=== PATIENT | female | born 1975 | race Caucasian/White ===

== ENCOUNTER 2018-03-04 18:36 | Outpatient (REF) | payer BC, SELFPAY ==
[2018-03-06 14:35] LABS: HCV RNA Detection Quantitative Undetected IU/mL (UNDECT)
== END 2018-03-04 18:56 ==
LOC: NCHCN 18:36
PROVIDERS: PCP Internal Medicine; Visit Provider Family Medicine
DX: B19.20 Unspecified viral hepatitis C without hepatic coma (principal)
CPT/HCPCS: 87522

== ENCOUNTER 2018-12-11 15:24 | Emergency (ER) | payer BC, SELFPAY ==
[2018-12-11 15:26] VITALS: BP 129/77; PULSE 86; RESP 14; TEMP 36.9; O2SAT 97
--- NOTE | 2018-12-11 15:43 | DI.RAD_ITS ---
SYMPTOM/DIAGNOSIS: COUGH CHEST X-RAY: PA and lateral. No priors Heart size and pulmonary vasculature are within normal limits. There is linear scarring seen in the anterior aspect of the lung on the lateral view. The lungs show no evidence of pneumonia, congestive heart failure or pneumothorax. The bones appear intact. IMPRESSION: No acute pulmonary process.
--- NOTE | 2018-12-11 15:44 | ED.GENADUL_ITS ---
Discharge Plan Disposition Patient Disposition: HOME Condition: Stable Discharge Details Chief Complaint: RespSymp Clinical Impression: CAP (community acquired pneumonia) Primary Care Provider: None,None ED Provider: Reynold Walsh Home Meds and New Rx's Prescriptions: New prednisone 20 mg tablet 60 mg PO DAILY 4 Days Qty: 12 RF: 0 doxycycline hyclate 100 mg tablet 100 mg PO BID Qty: 14 RF: 0 No Action Spiriva Respimat 1.25 mcg/actuation Mist 1 puff INHALATION DAILY RF: 0 albuterol sulfate [ProAir HFA] 90 mcg/actuation Hfa Aerosol Inhaler 2 puff INHALATION PRN PRNRF: 0 Discharge Instructions Instructions: Community Acquired Pneumonia (ED) Additional Instructions: follow up with your primary care provider next week if you feel more ill or have worsening shortness of breath return to the emergency department for reevaluation Medical Decision Making 43 yo female who states she has asthma and copd, cmoker, who comes in with chief complaint of shortness of breath and cough since Saturday with no relief from inhalers so came in today. Denies chest pressure, pain, no recent trauma or fevers. She is in no distress on exam speaking in full sentences, does have diffuse wheezing bilaterally on exam, will tx with steroids and nebs and reassess and also obtian cxr. No high fevers and appears well systemically so doubt sepsis at this time. Wells score low and perc negative so doubt PE at this time pt's lung exam improved, xray on my read shows small rll infiltrate. She is stable for outpatient management, will d/c home and return precautions given. Differential Diagnosis copd, asthma, pna Imaging Data Radiologic Study: Attestation: I personally reviewed and interpreted this imaging study as follows: Imaging: X-Ray My impression: small rll infiltrate HPI General Mode of arrival: ambulatory . Date/Time Provider Initiated Documentation: 12/11/18 15:28 . Limitations to Documentation: no limitations . Information obtained by: patient . History of Present Illness 43 year old F presents to the emergency department with the chief complaint of cough, described as moderate, and it has been constant. No relieving factors improve symptom(s), No exacerbating factors reported . Patient did receive the following treatments prior to arrival, none Related Data Home Medications Medication Instructions Recorded Confirmed albuterol sulfate [ProAir HFA] 2 puff INHALATION PRN PRN 12/11/18 12/11/18 doxycycline hyclate 100 mg PO BID #14 tab 12/11/18 prednisone 60 mg PO DAILY 4 Days #12 tab 12/11/18 tiotropium bromide [Spiriva 1 puff INHALATION DAILY 12/11/18 12/11/18 Respimat] Previous Rx's Medication Instructions Recorded doxycycline hyclate 100 mg PO BID #14 tab 12/11/18 prednisone 60 mg PO DAILY 4 Days #12 tab 12/11/18 Allergies Allergy/AdvReac Type Severity Reaction Status Date / Time clarithromycin [From Biaxin] AdvReac Intermediate arm Unverified 12/11/18 15:31 swelling, rash, vomiting General Stated Complaint: RespSymp ESPERANZA: 3 Review of Systems Review of Systems All systems reviewed & are unremarkable except as noted in HPI and below Constitutional Denies chills, Denies fever(s) and Denies weakness Cardiovascular Denies chest pain Gastrointestinal Denies abdominal pain, Denies nausea and Denies vomiting Genitourinary Denies dysuria Musculoskeletal Denies joint swelling Integumentary/Breasts Denies rash Neurologic Denies weakness Psychiatric Denies depression Endocrine Denies cold intolerance and Denies heat intolerance Allergic/Immunologic Denies urticaria PFSH Social History Smoking/Tobacco Use Status: Current every day Alcohol Intake: current Alcohol Intake frequency: a few times a month Drug use: Never Substance use type: does not use Do you feel safe at home: Yes Do you feel safe in your relationship?: Yes Exam Const General: no acute distress Orientation: alert HENMT Head: normal to inspection Ears: external ears normal General nose exam: external nose normal Mouth: moist mucous membranes Eyes General: appearance normal, both eyes and all related structures Neck Neck: normal visual inspection Resp Effort & Inspection: normal respiratory effort and able to speak in complete sentences Cardio Rate: regular rate Skin General skin exam: no rashes or lesions noted Neuro General: alert and oriented x3 Extrem General: normal to inspection Psych Mental Status: mental status grossly normal Course Vital Signs Temperature 36.9 C 12/11/18 15:26 Pulse 86 12/11/18 15:26 Respiratory Rate 14 12/11/18 15:26 Blood Pressure 129/77 12/11/18 15:26 Pulse Oximetry 97 12/11/18 15:26 Temperature 36.9 C 12/11/18 15:26 Temperature Source Skin 12/11/18 15:26 Pulse 86 12/11/18 15:26 Respiratory Rate 14 12/11/18 15:26 Respiratory Effort 12/11/18 15:33 Blood Pressure 129/77 12/11/18 15:26 Blood Pressure Position Sitting 12/11/18 15:26 Pulse Oximetry 97 12/11/18 15:26 Oxygen Delivery Method Room Air 12/11/18 15:26 Oxygen Flow Rate 0 12/11/18 15:26 Pain Level 8 12/11/18 15:26
[2018-12-11 16:02] VITALS: RESP 4
[2018-12-11] MEDS: predniSONE 20 MG TAB 60 MG PO (16:02)
[2018-12-11] MEDS: Albuterol/Ipratropium 3 ML UPD VIAL UPD (16:02)
--- NOTE | 2018-12-11 17:12 | DI.VRAD_ITS ---
EXAM: XR Chest, 2 Views EXAM DATE/TIME: 12/11/2018 3:44 PM CLINICAL HISTORY: 43 years old, female; Other: Cough TECHNIQUE: Imaging protocol: XR of the chest, 2 views. COMPARISON: No relevant prior studies available. FINDINGS: Lungs: Mild basilar linear fibrosis/atelectasis seen anteriorly on the lateral view. Lungs are otherwise well-aerated bilaterally. Pleural space: Unremarkable. No pleural effusion. No pneumothorax. Heart/Mediastinum: Unremarkable. No cardiomegaly. Bones/joints: Unremarkable. IMPRESSION: Mild basilar linear fibrosis/atelectasis. Otherwise unremarkable chest. Dictated and Authenticated by: Feliciano Armstrong MD. Ordering:ELIZABETH Flaherty MD
[2018-12-11 17:30] VITALS: PULSE 80; RESP 16; O2SAT 97
== END 2018-12-11 17:20 | disposition home or self-care (01) ==
PROVIDERS: Emergency Provider Emergency Medicine
DX: J18.9 Pneumonia, unspecified organism (principal)
CPT/HCPCS: 94640; 99283; 71046; J7512; J7620

== ENCOUNTER 2018-12-11 15:36 | Emergency (ER) | payer BC, SELFPAY ==
--- NOTE | 2018-12-11 16:10 | NUR.NOTE ---
Nursing Note: incorrect entry
== END 2018-12-11 15:43 | disposition other institution (70) ==
PROVIDERS: Emergency Provider Emergency Medicine; PCP Internal Medicine
DX: R69 Illness, unspecified (principal)

== ENCOUNTER 2019-07-18 18:40 | Emergency (ER) | payer BC, SELFPAY ==
[2019-07-18 18:43] VITALS: BP 130/78; PULSE 82; RESP 18; TEMP 36.6; O2SAT 97
--- NOTE | 2019-07-18 19:15 | DI.RAD_ITS ---
EXAM: XR CHEST 2V PA LATERAL CLINICAL HISTORY: cough TECHNIQUE: 2D digital imaging was performed. COMPARISON: No exams were available for comparison FINDINGS: MEDIASTINUM: Normal. HEART: Normal. PULMONARY VASCULATURE: Normal. LUNGS: Clear. PLEURAL SPACE: No pleural effusion or pneumothorax. BONE:Normal. OTHER FINDINGS:Normal. IMPRESSION: No acute pulmonary findings. DATA REPOSITORY: RADIATION DOSE DELIVERED:
--- NOTE | 2019-07-18 19:56 | DI.VRAD_ITS ---
PROCEDURE INFORMATION: Exam: XR Chest, 2 Views Exam date and time: 07/18/2019 7:36 PM Age: 44 years old Clinical indication: Other: Cough TECHNIQUE: Imaging protocol: XR of the chest Views: 2 views. COMPARISON: No relevant prior studies available. FINDINGS: Lungs: No acute consolidation. Pleural space: No pleural effusion or pneumothorax. Heart/Mediastinum: The heart and mediastinum are within normal limits. Bones/joints: No acute bony abnormality. IMPRESSION: No acute cardiopulmonary disease. Dictated and Authenticated by: Hunter Benitez MD. Ordering:DENISE Lyle MD
--- NOTE | 2019-07-18 20:00 | ED.GENADUL_ITS ---
Discharge Plan Disposition Patient Disposition: HOME Condition: Stable Discharge Details Chief Complaint: RespSymp Clinical Impression: URI (upper respiratory infection) Primary Care Provider: Edward Araya ED Provider: Valdo Alexander Home Meds and New Rx's Prescriptions: Continued budesonide-formoterol [Symbicort] 160-4.5 mcg/actuation Hfa Aerosol Inhaler 2 puff INHALATION BID RF: 0 Spiriva Respimat 1.25 mcg/actuation Mist 1 puff INHALATION DAILY RF: 0 albuterol sulfate [ProAir HFA] 90 mcg/actuation Hfa Aerosol Inhaler 2 puff INHALATION PRN PRNRF: 0 Discharge Instructions Instructions: Upper Respiratory Infection (ED) Additional Instructions: Rapid strep test is negative, culture pending. X-ray unremarkable for pneumonia. This is likely a viral syndrome and you will need to treat with rest, plenty of fluids, time, and dulo-bvu-[id number] medication for symptomatic control. Please watch for new or worsening symptoms and return to the ER for any concerns Medical Decision Making 44-year-old female who appears well, nontoxic presents for sore throat, bilateral ear pain, dry cough for the past 10 days or so. Primary concern right now is that of severe sore throat. Will obtain rapid strep, chest x-ray. Will not obtain flu as she is afebrile and she is well outside the window for treatment with Tamiflu. She does have a small amount of edema to the right foot, no erythema or warmth. No discomfort, negative Homans sign. Injury to the right knee likely caused mild dependent edema to the right foot. There is no indication this is a DVT, no clear indication for ultrasound. I did express my thought process with the patient and she does not feel as though an ultrasound is required. Rapid strep negative, culture pending. Chest x-ray negative. Discussed these findings with patient. No clear indication for antibiotics. Patient reports that she typically needs antibiotics and she feels this way. I explained to her that this is likely viral, viruses do not respond antibiotics, and likely treating with [id number] medications and time so that her immune response can respond to this virus is most appropriate approach. If culture is positive we will contact for antibiotic therapy. Medical Records Medical records reviewed: Yes I reviewed the patient's medical records. Imaging Data Radiologic Study: Attestation: I personally reviewed and interpreted this imaging study as follows: Imaging: X-Ray My impression: X-ray read by me as negative, later confirmed by virtual radiology Lab Data Lab results reviewed: Yes I reviewed the patient's lab results. Lab results narrative: Rapid strep negative, culture pending HPI General Mode of arrival: ambulatory . Date/Time Provider Initiated Documentation: 07/18/19 18:48 . Limitations to Documentation: no limitations . Information obtained by: patient . HPI Narrative: 44-year-old female reports 10 days ago she developed a cough, dry in nature, which is improving however now over the past 5-7 days she reports increased sore throat and bilateral ear pain- pressure. She does have a history of COPD and has been taking her inhalers as directed. She denies recent sick contact or travel. She complains of right foot swelling initially she states is atraumatic but the story is slightly more complicated. She had surgery on the right leg many years ago and occasionally from time to time does get some dependent edema. Of note, she struck her right knee with a mop 7 days ago and that is when the swelling in her foot began. She denies any chest pain, history of DVT or PE. She has been taking aatc-[id number]-[id number] medications with some relief. Related Data Home Medications Medication Instructions Recorded Confirmed Spiriva Respimat 1 puff INHALATION DAILY 12/11/18 07/18/19 albuterol sulfate [ProAir HFA] 2 puff INHALATION PRN PRN 12/11/18 07/18/19 budesonide-formoterol [Symbicort] 2 puff INHALATION BID 07/18/19 07/18/19 Allergies Allergy/AdvReac Type Severity Reaction Status Date / Time clarithromycin [From Biaxin] AdvReac Intermediate arm Unverified 07/18/19 18:48 swelling, rash, vomiting General Stated Complaint: RespSymp ESPERANZA: 3 Review of Systems Constitutional Constitutional: Denies fever(s) and Denies headache(s) Eyes Eyes: Denies eye discharge ENT Ears, Nose, Mouth, and Throat: Reports otalgia, Denies headache(s) and Reports s ore throat Cardiovascular Cardiovascular: Denies chest pain and Denies dyspnea Respiratory Respiratory: Reports cough and Denies dyspnea Gastrointestinal Gastrointestinal: Denies abdominal pain, Denies nausea and Denies vomiting Musculoskeletal Musculoskeletal: Denies myalgias Integumentary/Breasts Skin/Breast: Reports rash Neurologic Neurologic: Denies headache(s) [facility] Social History Smoking/Tobacco Use Status: Current every day Alcohol Intake: current Alcohol Intake frequency: a few times a month Drug use: Never Substance use type: does not use Do you feel safe at home: Yes Do you feel safe in your relationship?: Yes Exam Const General: cooperative, healthy appearing, comfortable and no acute distress Orientation: alert and awake [facility] Head: normal to inspection, normocephalic and atraumatic Ears: external ears normal, TM's normal bilaterally and EAC's normal Mouth: moist mucous membranes Throat: posterior oropharynx abnormal erythema (Mild) Eyes Conjunctivae: conjunctivae normal Neck Neck: normal visual inspection, full ROM, no lymphadenopathy, no meningeal signs, trachea midline and supple Resp Effort & Inspection: normal respiratory effort, able to speak in complete sentences and cough Quality of cough: dry (Mild) Auscultation: clear to auscultation bilaterally Cardio Rate: regular rate Rhythm: regular rhythm Skin General skin exam: no rashes or lesions noted Neuro General: alert, awake, moves all extremities and no focal motor deficits Sensory Exam: no sensory deficits noted Extrem Right lower extremity: full ROM, normal capillary refill, edema (Dorsum of right foot minimal nonpitting edema) and knee (Right knee anterior superior aspect with a small contusion); no cyanosis Psych Appearance: grossly normal Mental Status: mental status grossly normal Course Vital Signs Vital signs: Vital Signs Temperature 36.6 C 07/18/19 18:43 Pulse 82 07/18/19 18:43 Respiratory Rate 18 07/18/19 18:43 Blood Pressure 130/78 07/18/19 18:43 Pulse Oximetry 97 07/18/19 18:43 Temperature 36.6 C 07/18/19 18:43 Temperature Source Temporal Artery Scan 07/18/19 18:43 Pulse 82 07/18/19 18:43 Respiratory Rate 18 07/18/19 18:43 Respiratory Effort Non-Labored 07/18/19 18:48 Blood Pressure 130/78 07/18/19 18:43 Blood Pressure Position Sitting 07/18/19 18:43 Pulse Oximetry 97 07/18/19 18:43 Oxygen Delivery Method Room Air 07/18/19 18:43 Oxygen Flow Rate 0 07/18/19 18:43 Pain Level 10 07/18/19 18:43 Lab/Test Results Lab/Test Results: 07/18/19 18:51 Pharynx Streptococcus Screen (LALITO) - Pending POC Strep Test-JONATHAN(Rapid) Start: 07/18/19 18:54 Freq: .Rapid Strep Test Status: Active Protocol: Document 07/18/19 18:59 SGL (Rec: 07/18/19 18:59 [facility] [id number]) Strep test-JONATHAN(Rapid)-POC POC-Strep test-JONATHAN (Rapid) Negative POC-Strep test-JONATHAN (Rapid) Negative
[2019-07-18 20:09] VITALS: BP 129/76; PULSE 80; RESP 16; TEMP 36.7; O2SAT 99
--- NOTE | 2019-07-18 20:10 | NUR.NOTE ---
Discharge instructions reviewed with pt. Pt asking why she is not being given an abx for dx of respiratory infection Discussed virus vs bacterial infection. pt states my doctor always gives me an antibiotic for any lung problem. Again advised not indicated per PA, encouraged to call PCP if concerned. Speaking in full sentences. Ambulated to exit with steady gait.
== END 2019-07-18 20:15 | disposition home or self-care (01) ==
PROVIDERS: Emergency Provider Physician Assistant; PCP Family Medicine
DX: J06.9 Acute upper respiratory infection, unspecified (principal); J44.9 Chronic obstructive pulmonary disease, unspecified; F17.210 Nicotine dependence, cigarettes, uncomplicated
CPT/HCPCS: 81025; 87880; 99283; 71046; 87081

== ENCOUNTER 2020-04-28 18:05 | Outpatient (REF) | payer OTHER, SELFPAY ==
[2020-05-02 17:20] LABS: COVID-19 RT-PCR Result NEGATIVE (Negative)
== END 2020-04-28 18:25 ==
LOC: NCHCN 18:05
PROVIDERS: PCP Family Medicine; Visit Provider Nurse Practitioner Family
DX: R50.9 Fever, unspecified (principal)
CPT/HCPCS: U0003

== ENCOUNTER 2020-05-23 18:05 | Outpatient (REF) | payer OTHER, SELFPAY ==
[2020-05-24 21:48] LABS: COVID-19 RT-PCR Result NEGATIVE (Negative)
== END 2020-05-23 18:25 ==
LOC: NCHCN 18:05
PROVIDERS: PCP Family Medicine; Visit Provider Nurse Practitioner Family
DX: J06.9 Acute upper respiratory infection, unspecified (principal)
CPT/HCPCS: U0003

== ENCOUNTER 2020-10-26 17:34 | Outpatient (REF) | payer BC, SELFPAY ==
[2020-10-31 08:41] LABS: COVID-19 RT-PCR UVMMC Result Negative (Negative)
== END 2020-10-26 17:35 | disposition home or self-care (01) ==
LOC: LBN 17:34
PROVIDERS: PCP Family Medicine; Visit Provider Physician Assistant Medical
DX: Z20.822 Contact with and (suspected) exposure to COVID-19 (principal); R05 Cough
CPT/HCPCS: U0003

== ENCOUNTER → 2020-10-26 18:26 | Outpatient (CLI) | payer BC, SELFPAY ==
--- NOTE | 2020-10-26 13:41 | DI.RAD_ITS ---
Exam(s) XR CHEST 2V PA LATERAL EXAM: XR CHEST 2V PA LATERAL CLINICAL HISTORY: COUGH R05. TECHNIQUE: 2D digital imaging was performed. COMPARISON: CR,XR XR CHEST 2V PA LATERAL from 07/18/2019 FINDINGS: Heart size is normal. The mediastinum is not widened. Lungs are clear. No infiltrates nor pleural effusions. There appear to be multiple healed left-sided rib fractures. IMPRESSION: No acute pulmonary findings. Multiple healed left-sided rib fractures. DATA REPOSITORY: RADIATION DOSE DELIVERED:
== END ==
PROVIDERS: PCP Family Medicine; Visit Provider Physician Assistant Medical
DX: R05 Cough (principal)
CPT/HCPCS: U0003; 71046

== ENCOUNTER → 2020-11-10 13:38 | Outpatient (CLI) | payer BC, SELFPAY ==
--- NOTE | 2020-11-10 | DI.RAD_ITS ---
Exam(s) XR CHEST 2V PA LATERAL EXAM: XR CHEST 2V PA LATERAL CLINICAL HISTORY: COUGH, R05. TECHNIQUE: 2D digital imaging was performed. COMPARISON: CR XR CHEST 2V PA LATERAL from 10/26/2020 FINDINGS: Heart size is normal. The mediastinum is not widened. Lungs are clear. No infiltrates nor pleural effusions. Healed left-sided rib fractures are again noted IMPRESSION: No acute pulmonary findings.Healed left-sided rib fractures DATA REPOSITORY: RADIATION DOSE DELIVERED:
== END ==
PROVIDERS: PCP Family Medicine; Visit Provider Physician Assistant Medical
DX: R05 Cough (principal)
CPT/HCPCS: 71046

== ENCOUNTER 2020-11-10 15:08 | Outpatient (REF) | payer BC, SELFPAY ==
[2020-11-12 14:10] LABS: COVID-19 RT-PCR UVMMC Result Negative (Negative)
== END 2020-11-10 15:09 | disposition home or self-care (01) ==
LOC: LBN 15:08
PROVIDERS: PCP Family Medicine; Visit Provider Physician Assistant Medical
DX: Z20.822 Contact with and (suspected) exposure to COVID-19 (principal); J06.9 Acute upper respiratory infection, unspecified
CPT/HCPCS: U0003

== ENCOUNTER 2020-11-11 09:46 | Observation (INO) | payer BC, SELFPAY ==
[2020-11-11] VITALS (35 sets, daily range): BP systolic 121–147; BP diastolic 65–94; PULSE 65–105; RESP 13–24; TEMP 36.6–36.8; O2SAT 89–100
--- NOTE | 2020-11-11 09:45 | RT.EKG_ITS ---
APPROVED REPORT Exam: Resting ECG Reason for Exam: shortness of breath Patient Location: E HR:68 bpm ECG Measurements Heart Rate 68 AXIS SD 117 P 71 QRSd 88 QRS -6 QT 366 T 50 QTc 391 Conclusion Sinus rhythm...normal P axis, V-rate 60- 99
--- NOTE | 2020-11-11 10:00 | DI.CT_ITS ---
Exam(s) CT CHEST PE CTA EXAM: CT CHEST PE CTA CLINICAL HISTORY: right chest pain, pleuritic, shortness of breath. TECHNIQUE: Imaging Protocol: Axial CT angiography was performed with multi-slice acquisition and mu lti-planar and/or 3D reconstructions. CONTRAST MATERIAL: Intravenous: Omnipaque 350 Contrast volume:structured data in ml COMPARISON: No exams were available for comparison FINDINGS: CT angiography of the chest was performed with intravenous infusion of 100 cc of Omnipaque 350. The lungs are clear except for calcified granuloma of the left lower lobe.. No pleural effusion. Tra cheobronchial tree appears intact. No evidence of pulmonary embolic disease. Thoracic aorta is of normal diameter, no thoracic aortic an eurysm or dissection, major branch vessels appear intact. No mediastinal or hilar adenopathy. There is small calcified left hilar node consistent with healed granulomatous disease. Images obtained through the upper abdomen show unremarkable appearance of the visualized portions of the liver, spleen, pancreas, adrenals, and kidneys. Prior cholecystectomy. IMPRESSION: Negative CT angiogram of the chest. No evidence of pulmonary embolic disease. RADIATION DOSE DELIVERED: 514.7mGy.cm Total DLP 514.7mGy.cm Total DLP DATA REPOSITORY: All CT scans at this facility are submitted to the National Radiology Data Registry (NRDR) Dose Index Registry (DIR) with the [employer] (ACR). RADIATION OPTIMIZATION: All CT scans at this facility use at least one of these dose optimization te chniques: automated exposure control; mA and/or kV adjustment per patient size (includes targeted exa ms where dose is matched to clinical indication); or iterative reconstruction.
--- NOTE | 2020-11-11 10:16 | ED.GENADUL_ITS ---
Discharge Plan Discharge Details Chief Complaint: SOB Primary Care Provider: Edward Araya ED Provider: Liz Goss Home Meds and New Rx's Prescriptions: No Action budesonide-formoterol [Symbicort] 160-4.5 mcg/actuation Hfa Aerosol Inhaler 2 puff INHALATION BID RF: 0 Spiriva Respimat 1.25 mcg/actuation Mist 1 puff INHALATION DAILY RF: 0 albuterol sulfate [ProAir HFA] 90 mcg/actuation Hfa Aerosol Inhaler 2 puff INHALATION PRN PRNRF: 0 prednisone 20 mg tablet RF: 0 doxycycline hyclate 100 mg tablet RF: 0 Medical Decision Making patient is dyspneic with any sort of exertion, at rest she is mildly tachypneic but not in significant respiratory distress She has mild improvement after 3 DuoNeb in the emergency room, initially she was diminished and now wheezes are more prominent She also received 125 Solu-Medrol, she has been on a steroid taper and did not take her prednisone today She is also on the ninth day of her doxycycline, she did not take this medication today CT chest does not show pulmonary embolism or evidence of infectious etiology of patient's symptoms, suspect this is COPD/asthma exacerbation She will likely benefit from admission at this time given her significant dyspnea She was noted to become hypoxic at approximately 1300, 88 to 89% and she was subsequently placed on 1 L of oxygen She denies any chest pain or shortness of breath She agreeable to admission at this time EKG reviewed with my attending physician, please see documentation CT results reviewed by me and interpretation of radiologist are available Case was discussed with Barbara Grant, admitting hospitalist provider and she did ask me to administer 2 g of IV magnesium which have been initiated Medical Records Medical records reviewed: Yes I reviewed the patient's medical records. Lab Data Lab results reviewed: Yes I reviewed the patient's lab results. ECG Data Prior ECG tracings: available for review HPI General Mode of arrival: ambulatory . Date/Time Provider Initiated Documentation: 11/11/20 09:48 . Limitations to Documentation: no limitations . Information obtained by: patient . HPI Narrative: This 45-year-old female presents with history of COPD and asthma shortness of breath, cough, right-sided chest pain persistent for the past several weeks. She states that she was on inhalers and is on day 9 of a prednisone taper. She states that she is not feeling any improvement despite also being on the last day of her antibiotic. She states that she had 2 chest x-rays which were negative, negative chest x-ray yesterday. She states that she is also had 1 negative Covid test she had another one performed yesterday at urgent care but has not received the results. She denies any calf pain or swelling or history of coagulopathy. Her symptoms are exacerbated with coughing and with breathing. She denies any chance of . She denies any history of anticoagulation. She has a history of coagulopathy. Related Data Home Medications Medication Instructions Recorded Confirmed Spiriva Respimat 1 puff INHALATION DAILY 12/11/18 07/18/19 albuterol sulfate [ProAir HFA] 2 puff INHALATION PRN PRN 12/11/18 11/11/20 budesonide-formoterol [Symbicort] 2 puff INHALATION BID 07/18/19 11/11/20 doxycycline hyclate 11/11/20 11/11/20 prednisone 11/11/20 11/11/20 Allergies Allergy/AdvReac Type Severity Reaction Status Date / Time clarithromycin [From Biaxin] AdvReac Intermediate arm Unverified 11/11/20 09:56 swelling, rash, vomiting General Stated Complaint: SOB ESPERANZA: 2 Review of Systems All systems reviewed & are unremarkable except as noted in HPI and below PFSH Social History Smoking/Tobacco Use Status: Current every day Smoking risk assessment performed?: Yes Alcohol Intake: current Alcohol Intake frequency: a few times a month Drug use: Never Substance use type: does not use Do you feel safe at home: Yes Do you feel safe in your relationship?: Yes Course Vital Signs Vital signs: Vital Signs Temperature 36.8 C 11/11/20 09:52 Pulse 83 11/11/20 09:52 Respiratory Rate 20 11/11/20 09:52 Blood Pressure 133/93 H 11/11/20 09:52 Pulse Oximetry 95 11/11/20 09:52 Temperature 36.8 C 11/11/20 09:52 Temperature Source Skin 11/11/20 09:52 Pulse 83 11/11/20 09:52 Respiratory Rate 20 11/11/20 09:52 Respiratory Effort 11/11/20 09:58 Blood Pressure 133/93 H 11/11/20 09:52 Blood Pressure Position Sitting 11/11/20 09:52 Pulse Oximetry 95 11/11/20 09:52 Oxygen Delivery Method Room Air 11/11/20 09:52 Oxygen Flow Rate 0 11/11/20 09:52 Pain Level 5 11/11/20 09:52 Critical Care Time Critical Care Time Critical Care Time: Yes Total Critical Care Time: 35 Attestation: Telemetry monitoring, oxygen supplementation, IV magnesium, 3 DuoNeb's, IV Solu-Medrol, chest CT, admission to the hospital
[2020-11-11 10:20] LABS: Abs Immature Grans 0.12 10^3/uL (0.0-0.06); Absolute Basophil Count 0.03 10^3/uL (0.0-0.2); Absolute Eosinophil Count 0.11 10^3/uL (0.0-0.7); Absolute Monocyte Count 1.06 10^3/uL (0.1-0.8); Absolute Neutrophil Count 10.45 10^3/uL (1.2-6.7); Basophils % 0.2; Eosinophils % 0.7; HCT 43.8 % (36.0-46.0); HGB 14.6 g/dL (11.2-15.7); Immature Grans % 0.8; Lymphocytes % 22.4; MCH 29.9 pg (27.0-33.0); MCHC 33.3 % (32.0-36.0); MCV 89.8 fL (80-95); MPV 9.8 fL (8.0-11.0); Neutrophils % 68.9; Nucleated RBC 0 %; Platelet Count 269 10^3/uL (130-400); RBC 4.88 10^6/uL (3.93-5.22); RDW 12.7 % (11.7-14.6); RDW-SD 41.8 fL; Source Nasal/Nares; WBC 15.17 10^3/uL (4.4-10.8)
[2020-11-11] MEDS: Albuterol/Ipratropium 3 ML UPD VIAL 6 ML UPD (10:25)
[2020-11-11] MEDS: methylPREDNISolone SUCC 125 MG VIAL IVP (10:26)
[2020-11-11 10:37] LABS: ALT 40 U/L (14-59); AST 11 U/L (15-37); Albumin 3.2 g/dL (3.4-5.0); Alkaline Phosphatase 71 U/L (46-116); BUN 17 mg/dL (7-18); Bilirubin, Total 0.4 mg/dL (0.2-1.0); CREATININE 0.8 mg/dL (0.55-1.02); Calcium 8.9 mg/dL (8.5-10.1); Chloride 106 mmol/L (98-107); Glucose 94 mg/dL (74-106); Magnesium 2.1 mg/dL (1.8-2.4); NT-proBNP 123 pg/mL (<300); Potassium 3.4 mmol/L (3.5-5.1); Sodium 144 mmol/L (136-145); Total Protein 6.7 g/dL (6.4-8.2); Troponin I < 0.05 ng/mL (<0.06)
[2020-11-11 11:19] LABS: COVID-19 PCR Negative (Negative)
[2020-11-11] MEDS: Normal Saline - Diluent 50 ML VIAL IV (11:52)
[2020-11-11] MEDS: Omnipaque 350 MG/ML 100 ML BTL IJ (11:52)
[2020-11-11] MEDS: Acetaminophen 500 MG TAB 1000 MG PO (11:56)
[2020-11-11] MEDS: Albuterol/Ipratropium 3 ML UPD VIAL UPD (11:56)
[2020-11-11] MEDS: MAGNESIUM SULFATE 2 GM/50 ML BAG IVPB (12:34)
--- NOTE | 2020-11-11 15:09 | W.PM.HP.N ---
Date of service: 11/11/20 Time of Service: 15:09 Assessment and Plan Assessment and plan (1) Acute exacerbation of COPD with asthma: Start date: 11/11/20 Start time: 15:27 Status: Acute Assessment and plan: After 9 days of doxy and steroids, patient not feeling better. She continues to have SOB, despite being on doxy and steroids. She is being admitted overnight for obs. Will give steroids updrafts, pulmonary toiletry, mucomyst. Acapella, IS. Robitussin with codeine at HS with tramadol for pleural pain from cough. Toradol as well. Po steroids BID. Possible discharge in am She is not requiring antibiotics at this time. No sputum production (2) Bronchitis: Start date: 11/11/20 Start time: 15:34 Status: Acute Assessment and plan: Harsh cough likely viral as above (3) Cough: Start date: 11/11/20 Start time: 15:35 Status: Acute Assessment and plan: as above (4) Smoker: Start date: 11/11/20 Start time: 15:35 Status: Acute Assessment and plan: nictoine replacement as needed. (5) DVT prophylaxis: Start date: 11/11/20 Start time: 15:35 Status: Acute Assessment and plan: enoxaparin (6) Discharge planning issues: Start date: 11/11/20 Start time: 15:35 Status: Acute Assessment and plan: Home with no services possible tomorrow discussed with [place] History of Present Illness History of Present Illness Chief Complaint: COPD exacerbation, Brochitis, Asthama Narrative: 45 y.o female with PMH of COPD, Asthma, smoker presented to [facility] ED with persistent SOB, despite being on antibiotics x 9 days, with steroids. She was not hypoxic in ED however she does have harsh cough, no sputum production. WBC count elevated likely in setting of steroids. K level 3.4 will replete with po supplementation. She received several doses of albuterol in the ED. She also received a 2 gm dose of mag. She was asked to be admitted to [facility] for further management. She will be admitted to obs. She is feeling shaky likely from the albuterol, we will change to xoponex. She has harsh cough without any sputum production; though she feels she need to bring some up. IS ordered, acappella, mucinex, xoponex IH and Updraft, along with mucomyst ordered. She is c/o pain due to harsh cough, tramadol for pain with robatussin with codeine at HS ordered. Will place on steroid burst. No antibiotics needed at this time. Possible discharge in am. Review of Systems All systems reviewed & are unremarkable except as noted in HPI and below PFSH Medical History Asthma Bronchitis COPD (chronic obstructive pulmonary disease) Smoker Social History Smoking/Tobacco Use Status: Current every day Smoking risk assessment performed?: Yes Alcohol Intake: current Alcohol Intake frequency: a few times a month Drug use: Never Substance use type: does not use Do you feel safe at home: Yes Do you feel safe in your relationship?: Yes Meds Allergies and Home Medications Allergies Allergy/AdvReac Type Severity Reaction Status Date / Time clarithromycin [From Biaxin] AdvReac Intermediate arm Unverified 11/11/20 09:56 swelling, rash, vomiting Home Medications Medication Instructions Recorded Confirmed Type albuterol sulfate [ProAir HFA] 2 puff INHALATION PRN PRN 12/11/18 11/11/20 History budesonide-formoterol [Symbicort] 2 puff INHALATION BID 07/18/19 11/11/20 History doxycycline hyclate See Rx Instructions .ROUTE .COMPLEX 11/11/20 11/11/20 History prednisone See Rx Instructions .ROUTE .COMPLEX 11/11/20 11/11/20 History Exam Const General: cooperative, no acute distress and ill appearing chronically Nutritional Appearance: obese Orientation: alert, awake and oriented x3 HENMT Head: normal to inspection, normocephalic and atraumatic Ears: hearing grossly normal bilaterally Face and sinus: normal facial exam and face symmetric Mouth: moist mucous membranes Eyes Eyelids: eyelids normal Sclera: sclerae normal Pupils: PERRL and normal by confrontation EOM: EOM intact bilaterally Neck Neck: normal visual inspection, full ROM, trachea midline, no lymphadenopathy noted and no JVD Lymphatic: no lymphadenopathy noted and no lymphedema noted Chest Chest: normal inspection of the chest Resp Effort & Inspection: abnormal respiratory effort and able to speak in complete sentences Auscultation: diminished lung sounds and rhonchi Cardio Jugular venous pressure: no JVD Rate: regular rate Rhythm: regular rhythm Heart Sounds: S1 normal and S2 normal GI Inspection: normal to inspection Percussion: normal to percussion Auscultation: normal bowel sounds Skin General skin exam: no rashes or lesions noted Wounds: no wounds Neuro General: patient alert, patient awake and patient oriented x3 Cognition: normal cognition Speech: speech normal Extrem General: normal to inspection, full ROM and no clubbing, cyanosis or edema Psych Appearance: grossly normal and well kempt Mental Status: mental status grossly normal Mood: congruent mood Affect: normal affect Attitude: cooperative Thought Process: normal Thought Content: normal Results Labs Result diagrams: 11/11/20 10:05 11/11/20 10:05 Labs: Laboratory Results - last 24 hr 11/11/20 11/11/20 11/11/20 10:05 10:05 10:05 WBC 15.17 H RBC 4.88 Hgb 14.6 Hct 43.8 MCV 89.8 MCH 29.9 MCHC 33.3 RDW 12.7 Plt Count 269 MPV 9.8 Immature Gran % 0.8 Neutrophils % 68.9 Lymphocytes % 22.4 Monocytes % 7.0 Eosinophils % 0.7 Basophils % 0.2 Nucleated RBC % 0 Absolute Neutrophils 10.45 H Absolute Lymphocytes 3.40 Absolute Monocytes 1.06 H Absolute Eosinophils 0.11 Absolute Basophils 0.03 Sodium 144 Potassium 3.4 L Chloride 106 Carbon Dioxide 28.0 Anion Gap 10.0 BUN 17 Creatinine 0.8 Estimated GFR/1.73 m2 >= 60.00 Glucose 94 Calcium 8.9 Magnesium 2.1 Total Bilirubin 0.4 AST 11 L ALT 40 Alkaline Phosphatase 71 Troponin I < 0.05 NT-Pro-B Natriuret Pep 123 Total Protein 6.7 Albumin 3.2 L COVID-19 Source Nasal/Nares SARS-CoV-2 (PCR) Negative Last Vital Signs Temp 36.8 C 11/11/20 14:07 Pulse 84 11/11/20 14:07 Resp 17 11/11/20 14:07 BP 130/65 11/11/20 14:07 Pulse Ox 92 11/11/20 14:07
[2020-11-11 15:17] LABS: Procalcitonin < 0.1 ng/mL
[2020-11-11] MEDS: Potassium Chloride 20 MEQ TABCR 40 MEQ PO (16:11)
[2020-11-11] MEDS: Ketorolac 30 MG/ML VIAL IVP (16:12)
[2020-11-11] MEDS: Enoxaparin 40 MG/0.4 ML SYR SC (16:12)
[2020-11-11] MEDS: Acetylcysteine 20% *ORAL/INHALED* 6000 MG/30 ML VIAL 600 MG UPD ×2 (18:39→23:34)
[2020-11-11] MEDS: Levalbuterol 1.25 MG/3 ML UPD VIAL UPD ×2 (18:40→23:14)
--- NOTE | 2020-11-11 18:40 | RESPIRATORY ---
Addendum entered by Gayatri Barker 11/11/20 19:28: Pt got 210 on peak flow with good effort, sitting up in bed. Original Note: Per Amelia Nogueira pt can stop mucomyst tomorrow morning. Pt is doing xopenex before tx, and doing a peak flow pre/post xopenex. She tolerated the mucomyst fairly well but did need to stop the tx early.
[2020-11-11] MEDS: predniSONE 20 MG TAB 60 MG PO (20:36)
[2020-11-11] MEDS: guaiFENesin 600 MG TABCR PO (20:36)
[2020-11-11] MEDS: Budesonide/Formoterol 160/4.5 6 GM 60 PUFF INH IH (20:37)
[2020-11-11] MEDS: Benzonatate 100 MG CAP PO (20:37)
[2020-11-11] MEDS: Acetaminophen 325 MG TAB PO (20:47)
[2020-11-11] MEDS: guaiFENesin/CODEINE PHOSPHATE 10 ML CUP PO (21:59)
[2020-11-11] MEDS: Ketorolac 15 MG/ML VIAL IVP (23:34)
[2020-11-12] MEDS: Levalbuterol 1.25 MG/3 ML UPD VIAL UPD ×2 (05:48→08:20)
[2020-11-12 07:41] LABS: Abs Immature Grans 0.23 10^3/uL (0.0-0.06); Absolute Basophil Count 0.02 10^3/uL (0.0-0.2); Absolute Monocyte Count 0.67 10^3/uL (0.1-0.8); Basophils % 0.1; HCT 43.6 % (36.0-46.0); HGB 14.5 g/dL (11.2-15.7); Immature Grans % 1.4; Lymphocytes % 6.8; MCHC 33.3 % (32.0-36.0); MCV 90.3 fL (80-95); MPV 10.3 fL (8.0-11.0); Monocytes % 4.1; Neutrophils % 87.6; Nucleated RBC 0 %; Platelet Count 260 10^3/uL (130-400); RBC 4.83 10^6/uL (3.93-5.22); RDW 12.5 % (11.7-14.6); RDW-SD 41.1 fL; WBC 16.22 10^3/uL (4.4-10.8)
[2020-11-12 07:42] LABS: Absolute Neutrophil Count 14.21 10^3/uL (1.2-6.7)
[2020-11-12 07:43] VITALS: BP 126/77; PULSE 71; RESP 22; TEMP 36.8; O2SAT 94
[2020-11-12 07:52] LABS: Anion Gap 9.9 mmol/L (3-11); BUN 18 mg/dL (7-18); CO2 24.1 mmol/L (21.0-32.0); CREATININE 0.8 mg/dL (0.55-1.02); Calcium 8.5 mg/dL (8.5-10.1); Chloride 107 mmol/L (98-107); Magnesium 2.3 mg/dL (1.8-2.4); Sodium 141 mmol/L (136-145)
[2020-11-12] MEDS: guaiFENesin 600 MG TABCR PO (07:54)
[2020-11-12] MEDS: Benzonatate 100 MG CAP PO (07:54)
[2020-11-12] MEDS: Cetirizine 10 MG TAB PO (07:54)
[2020-11-12] MEDS: predniSONE 20 MG TAB 60 MG PO (07:54)
[2020-11-12] MEDS: traMADol 50 MG TAB PO (07:55)
[2020-11-12 08:08] LABS: Glucose 175 mg/dL (74-106); Potassium 4.2 mmol/L (3.5-5.1)
[2020-11-12 08:20] VITALS: RESP 4; RESP 7
[2020-11-12] MEDS: Budesonide/Formoterol 160/4.5 6 GM 60 PUFF INH IH (08:21)
--- NOTE | 2020-11-12 09:57 | W.PM.DS.N ---
Date of service: 11/12/20 Time of Service: 09:57 DS: Diagnosis Discharge Diagnosis (1) Acute exacerbation of COPD with asthma: Start date: 11/12/20 Start time: 09:57 Status: Acute Asessment and Plan: Improving. She received 2 gm mag in the ED, by the time she made it to the floor she was feeling better. SOB improved. She did receive mucomyst overnight with acapella an IS. Steroids, updrafts and xoponex, along with ihaler. Exercise oximetry preformed by myself with one walf around the unit patient maintained saturation at 97% on RA with HR no greater than 112. She denied SOB, able to speak in complete sentences. She continues to do papr, she states this makes her feel better. She does complain of pleural chest pain due to harsh cough. Tramadol did help along with toradol and robitussin at HS. Likely viral bronchitis as 9 days antibiotics did not help in setting of COPD exacerbation with asthma Procal less than 0.1 no fever, she does have leukocytosis, likely from steroid will continue steroid taper, discharging home (2) Bronchitis: Start date: 11/12/20 Start time: 10:05 Status: Acute Asessment and Plan: as above likely viral (3) Cough: Start date: 11/12/20 Start time: 10:05 Status: Acute Asessment and Plan: as above harsh will give tesslon perrals mucinex Robitussin with codiene at HS papr (4) Smoker: Start date: 11/12/20 Start time: 10:06 Status: Acute Asessment and Plan: recommend smoking cessation above discussed with Dr. Ortiz Discharge Plan Disposition Patient Disposition: HOME Condition: Improving Discharge Details Reason For Visit: Asthma Exacerbation Admit Date/Time: 11/11/20 12:27 Admit Provider: Barbara Nogueira Attending Provider: Barbara Nogueira Primary Care Provider: Edward Araya [facility] Course Hospital Course: 45 y.o female with PMH of COPD, Asthma, smoker presented to [facility] ED with persistent SOB, despite being on antibiotics x 9 days, with steroids. She was not hypoxic in ED however she does have harsh cough, no sputum production. WBC count elevated likely in setting of steroids. K level 3.4 will replete with po supplementation. She received several doses of albuterol in the ED. She also received a 2 gm dose of mag. She was asked to be admitted to [facility] for further management. She will be admitted to obs. She is feeling shaky likely from the albuterol, we will change to xoponex. She has harsh cough without any sputum production; though she feels she need to bring some up. IS ordered, acappella, mucinex, xoponex IH and Updraft, along with mucomyst ordered. She is c/o pain due to harsh cough, tramadol for pain with robatussin with codeine at HS ordered. Will place on steroid burst. No antibiotics needed at this time. Today she feels much better no SOB with ambulation. Ambulatory pulse ox maintaining 97% at all times without any dyspnea. HR up to 112. She did receive xoponex updraft prior to ambulation. She did not have any difficulty. She states she slept well. She denies SOB, CP. She states that she does have pleural chest pain to her front and sides due to harsh cough. She is unable to produce any sputum. She does have wheezing, however aeration is better. She states overall is she better. She denies Cp, SOB, N/V/D. Will treat with steroid, mucylitics, analgesics and encourage use of papr and IS at home. Recommend smoking cessation. Follow up with PCP in 1-2 weeks. Home Meds and New Rx's Prescriptions: New benzonatate 100 mg Capsule 100 mg PO TID Qty: 30 RF: 0 cetirizine 10 mg Tablet 10 mg PO DAILY Qty: 30 RF: 0 codeine-guaifenesin 10-100 mg/5 mL Liquid 10 ml PO HS Qty: 118 RF: 0 guaifenesin [Mucinex] 600 mg Tablet Extended Release 12hr 600 mg PO BID Qty: 20 RF: 0 tramadol 50 mg Tablet 50 mg PO Q4H PRN PRNQty: 20 RF: 0 ketorolac 10 mg tablet 10 mg PO TID PRN5 Days Qty: 15 RF: 0 prednisone 20 mg tablet 20 mg PO DAILY Qty: 41 RF: 0 Continued budesonide-formoterol [Symbicort] 160-4.5 mcg/actuation Hfa Aerosol Inhaler 2 puff INHALATION BID RF: 0 albuterol sulfate [ProAir HFA] 90 mcg/actuation Hfa Aerosol Inhaler 2 puff INHALATION PRN PRNRF: 0 Discontinued prednisone 20 mg tablet See Rx Instructions .ROUTE .COMPLEX RF: 0 doxycycline hyclate 100 mg tablet See Rx Instructions .ROUTE .COMPLEX RF: 0 Discharge Instructions Instructions: Asthma (DC), Acute Bronchitis (GEN), COPD (Chronic Obstructive Pulmonary Disease) (DC), Bronchospasm (DC), Acute Cough (GEN), How Your Lungs Work (DC) Additional Instructions: Take medications as directed Continue to use your papr and incentive spirometer Take pain medication as directed. Follow up with PCP in 1-2 weeks Activity:: Activity as Tolerated Equipment/Supplies:: No Equipment Needed Diet:: As Tolerated Discharge Orders Discharge Orders: Discharge Order (Routine); Ordered 11/12/20 Ordered By: Barbara Nogueira DS: Summary Time Spent with Patient providing and/or coordinating discharge services: Greater than 30 minutes Status at Discharge Functional status at discharge: independent ambulation Overall status at discharge: patient is progressing back to baseline Mental Status: mental status grossly normal Speech and Movement: speech and movement normal Mood: congruent mood Affect: normal affect Exam Const General: cooperative, no acute distress and ill appearing chronically Nutritional Appearance: obese Orientation: alert, awake and oriented x3 HENMT Head: normal to inspection, normocephalic and atraumatic Ears: hearing grossly normal bilaterally Face and sinus: normal facial exam and face symmetric Mouth: moist mucous membranes Eyes Eyelids: eyelids normal Sclera: sclerae normal Pupils: PERRL and normal by confrontation EOM: EOM intact bilaterally Neck Neck: normal visual inspection, full ROM, trachea midline, no lymphadenopathy noted and no JVD Lymphatic: no lymphadenopathy noted and no lymphedema noted Chest Chest: normal inspection of the chest Resp Effort & Inspection: normal respiratory effort and able to speak in complete sentences Auscultation: clear to auscultation bilaterally (upper lobes improved air movement) and wheezes expiratory wheezes Cardio Jugular venous pressure: no JVD Rate: regular rate Rhythm: regular rhythm Heart Sounds: S1 normal and S2 normal GI Inspection: normal to inspection Percussion: normal to percussion Auscultation: normal bowel sounds Skin General skin exam: no rashes or lesions noted Wounds: no wounds Neuro General: patient alert, patient awake and patient oriented x3 Cognition: normal cognition Speech: speech normal Extrem General: normal to inspection, full ROM and no clubbing, cyanosis or edema Psych Appearance: grossly normal and well kempt Mental Status: mental status grossly normal Speech and Movement: speech and movement normal Mood: congruent mood Affect: normal affect Attitude: cooperative Thought Process: normal Thought Content: normal DS: Data Vitals/I&O Vitals and I&O: Vital Signs Temperature 36.8 C 11/12/20 07:43 Temperature Source Tympanic 11/12/20 07:43 Pulse 71 11/12/20 07:43 Pulse Rhythm Regular 11/12/20 00:00 Pulse 84 11/11/20 13:20 Respiratory Rate 22 11/12/20 07:43 Respiratory Effort Short of Breath 11/12/20 00:00 Respiratory Depth Normal 11/12/20 00:00 Respiratory Pattern Normal 11/12/20 00:00 Blood Pressure 126/77 11/12/20 07:43 Blood Pressure Mean 84 11/11/20 13:01 Blood Pressure Position Sitting 11/11/20 09:52 Pulse Oximetry 94 11/12/20 07:43 Oxygen Delivery Method Room Air 11/12/20 07:43 Oxygen Flow Rate 0 11/12/20 07:43 Pain Level 5 11/12/20 07:55 Intake & Output 11/11/20 11/11/20 11/12/20 11:59 23:59 11:59 Intake Total 650 / 650 Output Total 200 / 200 Balance 450 / 450 Weight 93.894 kg Intake: Oral 650 / 650 Output: Urine 200 / 200 Other: Urine Color Yellow Urine Appearance Clear Clear Urine Odor Normal Voiding Methods Toilet Data Completed and Pending Completed studies during hospitalization [Text1]: Exam(s) a CT:CT chest PE CTA Exam(s) CT CHEST PE CTA EXAM: CT CHEST PE CTA CLINICAL HISTORY: right chest pain, pleuritic, shortness of breath. TECHNIQUE: Imaging Protocol: Axial CT angiography was performed with multi-slice acquisition and multi-planar and/or 3D reconstructions. CONTRAST MATERIAL: Intravenous: Omnipaque 350 Contrast volume:structured data in ml COMPARISON: No exams were available for comparison FINDINGS: CT angiography of the chest was performed with intravenous infusion of 100 cc of Omnipaque 350. The lungs are clear except for calcified granuloma of the left lower lobe.. No pleural effusion. Tracheobronchial tree appears intact. No evidence of pulmonary embolic disease. Thoracic aorta is of normal diameter, no thoracic aortic aneurysm or dissection, major branch vessels appear intact. No mediastinal or hilar adenopathy. There is small calcified left hilar node consistent with healed granulomatous disease. Images obtained through the upper abdomen show unremarkable appearance of the visualized portions of the liver, spleen, pancreas, adrenals, and kidneys. Prior cholecystectomy. IMPRESSION: Negative CT angiogram of the chest. No evidence of pulmonary embolic disease. : 1975 Age: 45 Exam(s) XR CHEST 2V PA LATERAL EXAM: XR CHEST 2V PA LATERAL CLINICAL HISTORY: COUGH, R05. TECHNIQUE: 2D digital imaging was performed. COMPARISON: CR XR CHEST 2V PA LATERAL from 10/26/2020 FINDINGS: Heart size is normal. The mediastinum is not widened. Lungs are clear. No infiltrates nor pleural effusions. Healed left-sided rib fractures are again noted IMPRESSION: No acute pulmonary findings.Healed left-sided rib fractures Labs on day of discharge: Labs from last 24 hours 11/12/20 11/12/20 11/11/20 07:15 07:15 10:05 WBC 16.22 H RBC 4.83 Hgb 14.5 Hct 43.6 MCV 90.3 MCH 30.0 MCHC 33.3 RDW 12.5 Plt Count 260 MPV 10.3 Immature Gran % 1.4 Neutrophils % 87.6 Lymphocytes % 6.8 Monocytes % 4.1 Eosinophils % 0.0 Basophils % 0.1 Nucleated RBC % 0 Absolute Neutrophils 14.21 H Absolute Lymphocytes 1.10 L Absolute Monocytes 0.67 Absolute Eosinophils 0.00 Absolute Basophils 0.02 Sodium 141 Potassium 4.2 D Chloride 107 Carbon Dioxide 24.1 Anion Gap 9.9 BUN 18 Creatinine 0.8 Estimated GFR/1.73 m2 >= 60.00 Glucose 175 H D Calcium 8.5 Magnesium 2.3 Total Bilirubin AST ALT Alkaline Phosphatase Troponin I NT-Pro-B Natriuret Pep Total Protein Albumin Procalcitonin < 0.1 COVID-19 Source SARS-CoV-2 (PCR) 11/11/20 11/11/20 11/11/20 10:05 10:05 10:05 WBC 15.17 H RBC 4.88 Hgb 14.6 Hct 43.8 MCV 89.8 MCH 29.9 MCHC 33.3 RDW 12.7 Plt Count 269 MPV 9.8 Immature Gran % 0.8 Neutrophils % 68.9 Lymphocytes % 22.4 Monocytes % 7.0 Eosinophils % 0.7 Basophils % 0.2 Nucleated RBC % 0 Absolute Neutrophils 10.45 H Absolute Lymphocytes 3.40 Absolute Monocytes 1.06 H Absolute Eosinophils 0.11 Absolute Basophils 0.03 Sodium 144 Potassium 3.4 L Chloride 106 Carbon Dioxide 28.0 Anion Gap 10.0 BUN 17 Creatinine 0.8 Estimated GFR/1.73 m2 >= 60.00 Glucose 94 Calcium 8.9 Magnesium 2.1 Total Bilirubin 0.4 AST 11 L ALT 40 Alkaline Phosphatase 71 Troponin I < 0.05 NT-Pro-B Natriuret Pep 123 Total Protein 6.7 Albumin 3.2 L Procalcitonin COVID-19 Source Nasal/Nares SARS-CoV-2 (PCR) Negative [facility] Medical History Asthma Bronchitis COPD (chronic obstructive pulmonary disease) Smoker Social History Smoking/Tobacco Use Status: Current every day Smoking risk assessment performed?: Yes Alcohol Intake: current Alcohol Intake frequency: a few times a month Drug use: Never Substance use type: does not use Do you feel safe at home: Yes Do you feel safe in your relationship?: Yes
== END 2020-11-12 11:52 | disposition home or self-care (01) ==
LOC: ER 12:49 → MS 13:59
PROVIDERS: Admitting Provider Nurse Practitioner Family; Emergency Provider Physician Assistant; PCP Family Medicine; Visit Provider Nurse Practitioner Family
DX: J44.1 Chronic obstructive pulmonary disease with (acute) exacerbation (principal); J44.0 Chronic obstructive pulmonary disease with (acute) lower respiratory infection; J20.9 Acute bronchitis, unspecified; F17.210 Nicotine dependence, cigarettes, uncomplicated
CPT/HCPCS: 36415; 71275; 80048; 80053; 84145; 87635; 93005; 94640; 96365; 96375; 99291; J1650; 83735; 83880; 84484; 85025; 93010; 99217; 99219; G0378; J1885; J2930; J3490; J7512; J7608; J7614; J7620

== ENCOUNTER 2021-09-04 19:16 | Emergency (ER) | payer BC, SELFPAY ==
[2021-09-04 19:22] VITALS: BP 150/84; PULSE 78; RESP 18; TEMP 36.9; O2SAT 96
[2021-09-04 19:29] VITALS: RESP 18
--- NOTE | 2021-09-04 19:45 | DI.RAD_ITS ---
Exam(s) XR PORTABLE CHEST AP EXAM: XR PORTABLE CHEST AP CLINICAL HISTORY: copd, sob, right chest wall pain posteriorlateral TECHNIQUE: 2D digital imaging was performed of the chest. One image was obtained. An AP view was ob tained. COMPARISON: CR XR CHEST 2V PA LATERAL from 11/10/2020 FINDINGS: MEDIASTINUM: Normal. HEART: Normal. PULMONARY VASCULATURE: Normal. LUNGS: Clear. PLEURAL SPACE: No pleural effusion or pneumothorax. BONE:Within normal limits for the patient's age. There are old healed left rib fractures. OTHER FINDINGS:Normal. IMPRESSION: No acute pulmonary findings. DATA REPOSITORY: RADIATION DOSE DELIVERED:
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
[2021-09-04 20:10] VITALS: RESP 4
[2021-09-04] MEDS: Ketorolac 15 MG/ML VIAL IM (20:10)
[2021-09-04] MEDS: Albuterol/Ipratropium 3 ML UPD VIAL 9 ML UPD (20:10)
[2021-09-04] MEDS: Dexamethasone 10 MG/ML VIAL IVP (20:10)
--- NOTE | 2021-09-04 21:28 | DI.VRAD_ITS ---
PROCEDURE INFORMATION: Exam: XR Chest Exam date and time: 09/04/2021 8:42 PM Age: 46 years old Clinical indication: Other: Copd, SOB, right chest wall pain, posteriorlateral TECHNIQUE: Imaging protocol: XR of the chest. Views: 1 view. COMPARISON: CR XR CHEST 2V PA LATERAL 11/10/2020 1:50 PM FINDINGS: Lungs: No pulmonary consolidation. Pleural spaces: No pleural effusion or pneumothorax. Heart/Mediastinum: Normal sized heart. Bones/joints: Old fractures through the posterolateral aspect of the left 6 and 8th ribs. IMPRESSION: No active disease is seen in the chest. Dictated and Authenticated by: Randolph Maher MD. Ordering:JAVID Sherman MD
[2021-09-04 22:00] VITALS: BP 150/84; PULSE 78; RESP 18; TEMP 36.9; O2SAT 96
== END 2021-09-04 22:04 | disposition home or self-care (01) ==
PROVIDERS: Emergency Provider Emergency Medicine; PCP Family Medicine
DX: J44.1 Chronic obstructive pulmonary disease with (acute) exacerbation (principal); Z86.16 Personal history of COVID-19; F17.210 Nicotine dependence, cigarettes, uncomplicated
CPT/HCPCS: 94640; 96372; 96374; 99284; 71045; J1100; J1885; J7620